=== PATIENT | male | born 1990 | race African-American/Black ===

== ENCOUNTER 2019-08-16 11:21 | Emergency (ER) | payer OTHER, SELFPAY ==
[2019-08-16 11:27] VITALS: BP 140/93; PULSE 100; RESP 16; TEMP 36.4; O2SAT 95
[2019-08-16 12:04] LABS: Bilirubin Small (Negative); Blood Moderate (Negative); Clarity Clear (Clear); Glucose Negative (Negative); Ketones Trace mg/dL (Negative); Leukocyte Esterase Negative (Negative); Nitrite Negative (Negative); Specific Gravity >= 1.030 (1.005-1.025)
[2019-08-16 12:15] LABS: Bacteria Negative HPF (Negative); Crystals Negative HPF (Negative); Epithelial Cells Few HPF (Negative); RBC 20-50 HPF (0-2)
[2019-08-16 12:16] LABS: C & S Indicated? No; Casts Negative LPF (Negative); Mucus Trace (Negative)
--- NOTE | 2019-08-16 12:39 | ED.GENADUL_ITS ---
Discharge Plan Disposition Patient Disposition: HOME Condition: Stable Discharge Details Chief Complaint: Urinary Clinical Impression: Hematuria Primary Care Provider: None,None ED Provider: Maria Alejandra Whalen Home Meds and New Rx's Prescriptions: No Action metformin 500 mg Tablet 500 mg PO BID RF: 0 prednisone 10 mg Tablet 10 mg PO DAILY RF: 0 amlodipine 5 mg Tablet 5 mg PO DAILY RF: 0 calcium carbonate [Calcium 600] 600 mg calcium (1,500 mg) Tablet 1 mg PO DAILY RF: 0 folic acid 1 mg Tablet 1 mg PO DAILY RF: 0 omeprazole 20 mg Tablet,Delayed Release (Dr/Ec) 23 mg PO DAILY RF: 0 melatonin 5 mg Tablet 5 mg PO .QHS RF: 0 Discharge Instructions Instructions: Hematuria (ED) Additional Instructions: Drink plenty of water. Observe for any return of symptoms. Follow-up promptly with your primary care doctor for urinalysis findings and complaints of painless blood in your urine which may require further outpatient work-up and testing. Return for any worsening, concerns or alarming symptoms sooner. We will call for any positive test results. Discharge Data Discharge Date/Time-TO BE ENTERED AT DEPARTURE: 08/16/19 12:57 Medical Decision Making Is a healthy appearing 29-year-old patient who is quite pleasant presenting to the emergency room for complaints of hematuria. Patient reports no history of similar. Patient is visiting from [facility] tomorrow. Patient reports he after urinating this morning noted a few drops of blood. Patient denies dysuria, urgency or frequency. Patient denies penile discharge. Patient denies any abdominal or back pain. Patient has no history of easy bleeding or bruising. Patient's energy is normal. In general patient has no complaints. Patient was alarmed after noting a few drops of blood after his urinary stream completed with no associated symptoms. Patient has no difficulty urinating or voiding at this time. Patient feels after he urinates he does completely void. No testicular pain or scrotal complaints. Denies any injury or trauma. Urinalysis obtained reveals trace ketones, moderate blood and small bilirubin. Negative for leukocyte esterase or nitrites. Red blood cells present. Given patient's benign physical exam as well as urinary findings I have encouraged patient to follow-up promptly with his primary care doctor for the possibility of ultrasound evaluation for any persistence of symptoms. STD testing pending. Urine culture pending. Patient has had no persistence of symptoms since initial onset this morning. Patient remains to have a benign abdominal exam and genitourinary exam. I did discuss this case with Dr. Parsons who agrees with plan of care for patient with painless hematuria with no associated symptoms. He did reveal urinalysis but did not specifically evaluate the patient at the bedside. Patient's labs printed to provide to his primary care doctor for follow-up. Patient feels comfortable with discharge home at this time. The patient was stable and requested discharge. Prior to discharge, my usual and customary return precautions were reviewed with the patient - this included follow-up instructions and reasons to return to the Emergency Department if conditions worsens, does not improve as expected, or other new concerns arise. HPI General Date/Time Provider Initiated Documentation: 08/16/19 12:19 . HPI Narrative: Is a very pleasant 29-year-old patient presenting to the emergency room today for complaints of hematuria. Patient reports after urinating this morning he noted a few drops of blood which were quite startling. Patient reports he has had no persistent blood with urinating throughout the morning. Patient denies dysuria, urgency or frequency of urination. Denies abdominal or back pain. Denies any easy bleeding or bruising. Patient denies headache or dizziness. Patient denies fever, chills, nausea, vomiting. No associated bowel changes. Denies penile pain or testicular pain. Denies any concern of STDs. Denies any injury or trauma. Denies any penile discharge. Is sexually active. No rashes. No other concerns or complaints at this time. No history of similar in the past. Related Data Home Medications Medication Instructions Recorded Confirmed amlodipine 5 mg PO DAILY 08/16/19 08/16/19 calcium carbonate [Calcium 600] 1 mg PO DAILY 08/16/19 08/16/19 folic acid 1 mg PO DAILY 08/16/19 08/16/19 melatonin 5 mg PO .QHS 08/16/19 08/16/19 metformin 500 mg PO BID 08/16/19 08/16/19 omeprazole 23 mg PO DAILY 08/16/19 08/16/19 prednisone 10 mg PO DAILY 08/16/19 08/16/19 Allergies Allergy/AdvReac Type Severity Reaction Status Date / Time No Known Allergies Allergy Unverified 08/16/19 11:31 General Stated Complaint: Urinary SAI: 3 Review of Systems All systems reviewed & are unremarkable except as noted in HPI and below Constitutional Constitutional: Denies chills, Denies fatigue, Denies fever(s), Denies headache(s), Denies malaise and Denies weakness ENT Ears, Nose, Mouth, and Throat: Denies bleeding gums and Denies headache(s) Cardiovascular Cardiovascular: Denies diaphoresis, Denies syncope, Denies rapid heart rate, Denies lightheadedness, Denies palpitations, Denies dyspnea and Denies dyspnea on exertion Respiratory Respiratory: Denies cough, Denies dyspnea and Denies dyspnea on exertion Gastrointestinal Gastrointestinal: Denies abdominal pain, Denies diarrhea, Denies nausea and Denies vomiting Genitourinary Genitourinary: Reports hematuria, Denies difficulty urinating, Denies genital lesions, Denies genital pain, Denies dysuria, Denies flank pain, Denies penile discharge, Denies scrotal swelling, Denies testicular pain, Denies urinary frequency, Denies urinary hesitancy and Denies urinary urgency Musculoskeletal Musculoskeletal: Denies back pain Neurologic Neurologic: Denies syncope, Denies headache(s) and Denies weakness Endocrine Endocrine: Denies fatigue and Denies palpitations FOR[facility], [facility] Social History Smoking/Tobacco Use Status: Never Alcohol Intake: never Substance use type: does not use Exam Narrative Exam Narrative: CONST: Healthy appearing patient, in no acute distress. Well hydrated. Alert and alert. EYES: General normal appearance. Alignment normal. Eyelids normal. Conjunctiva normal. Sclera normal. PERRL. NECK: Normal visual inspection. FROM. No lymphadenopathy. Trachea midline. No Midline tenderness. GI: Normal inspection of abdomen. No distension. Soft. Nontender. Bowel sounds present in all 4 quadrants. No rebound. No gaurding. : No penile discharge, no lesions or rash. No testicular or scrotal pain or swelling. No epididymal pain with palpation. No inguinal lymphadenopathy noted. Back: No CVA tenderness noted bilaterally SKIN: Normal. Dry. No rashes. Course Vital Signs Vital signs: Vital Signs Temperature 36.4 C L 08/16/19 11:27 Pulse 100 H 08/16/19 11:27 Respiratory Rate 16 08/16/19 11:27 Blood Pressure 140/93 H 08/16/19 11:27 Pulse Oximetry 95 08/16/19 11:27 Temperature 36.4 C L 08/16/19 11:27 Temperature Source Skin 08/16/19 11:27 Pulse 100 H 08/16/19 11:27 Respiratory Rate 16 08/16/19 11:27 Respiratory Effort Non-Labored 08/16/19 11:27 Blood Pressure 140/93 H 08/16/19 11:27 Blood Pressure Position Sitting 08/16/19 11:27 Pulse Oximetry 95 08/16/19 11:27 Oxygen Delivery Method Room Air 08/16/19 11:27 Oxygen Flow Rate 0 08/16/19 11:27 Pain Level 0 08/16/19 11:35 Lab/Test Results Lab/Test Results: Laboratory Tests Range/Units 08/16/19 11:57 Urine Color (Yellow) Yellow Urine Clarity (Clear) Clear Urine pH (5-8) 6.0 Ur Specific [place] (1.005-1.025) >= 1.030 H Urine Protein (Negative) mg/dL Negative Urine Ketones (Negative) mg/dL Trace H Urine Blood (Negative) Moderate H Urine Nitrite (Negative) Negative Urine Bilirubin (Negative) Small H Urine Urobilinogen (Up TO 0.2) EU/dL 1.0 H Ur Leukocyte Esterase (Negative) Negative Urine RBC (0-2) HPF 20-50 H Urine WBC (0-5) HPF 3-5 Ur Epithelial Cells (Negative) HPF Few Urine Crystals (Negative) HPF Negative Urine Bacteria (Negative) HPF Negative Urine Casts (Negative) LPF Negative Urine Mucus (Negative) Trace Ur Culture Indicated? No Urine Glucose (Negative) mg/dL Negative
[2019-08-18 13:25] LABS: Chlamydia Result Negative (Negative); GC Result Negative (Negative)
== END 2019-08-16 12:57 | disposition home or self-care (01) ==
PROVIDERS: Emergency Provider Physician Assistant
DX: R31.9 Hematuria, unspecified (principal)
CPT/HCPCS: 36415; 87491; 87591; 99282; 81003; 81015; 87086; 99283